=== PATIENT | female | born 1950 | race Caucasian/White ===

== ENCOUNTER → 2017-12-16 | Day surgery (SDC) | payer MEDICARE, OTHER ==
--- NOTE | 2017-12-12 16:04 | Diagnostic Imaging Report ---
PROCEDURE: Frontal and lateral views of the chest. COMPARISON: None. INDICATIONS: pre-op foot FINDINGS: Lines/tubes: None. Lungs: The lungs are well inflated and clear. There is no evidence of pneumonia or pulmonary edema. Mild subsegmental atelectasis or scarring in the left lung base. Pleura: There is no pleural effusion or pneumothorax. Heart and mediastinum: The heart and the mediastinum are normal. Bones: No acute bony abnormality. IMPRESSION: 1. No acute cardiopulmonary disease. Dictated by: Sanya Alvarez M.D. on 12/12/2017 at 16:03 Electronically approved by: Sanya Alvarez M.D. on 12/12/2017 at 16:03
[~2017-12-16] MED LIST: ATORVASTATIN CA20 MG PO; BUPIVACAINE HCL 0.5% 10ML MPF VIAL INJ ONE; CALCIUM 500+D1 EACH PO; CEFAZOLIN SOD 2 GM/D5W 50ML 50 ML IV ONE; DEXAMETHASONE SOD PHOS INJ 4 MG/ML VIAL ONE; EPHEDRINE SULFATE INJ 50 MG/10 ML SYR ONE; FENTANYL CITRATE/PF 100MCG/2 ML INJ ONE; KETOROLAC TROMETHAMINE 30 MG/ML VIAL ONE; LIDOCAINE HCL 2% LOCAL INJ 5 ML SDV VIAL INJ ONE; MIDAZOLAM HCL 2 MG/2 ML VIAL ONE; MULTIVITAMINS1 EAC7 PO; NEOSTIGMINE 1 MG/ML 10ML VIAL ONE; ONDANSETRON HCL INJ 2 MG/ML VIAL ONE; PROPOFOL IV EMULSION 10 MG/ML 20 ML VIAL ONE; SEVOFLURANE INHAL SOLN 250 ML PEN BTL ONE
--- OUTSIDE RECORDS SUMMARY | 2017-12-16 09:12 | XMS REPORT ---
Author Author [facility] Address Unknown Phone Unavailable Care Team Providers Care Furniture [employer] Name Role Phone MELINA SOTO Unavailable Unavailable Problems This patient has no known problems. Allergies, Adverse Reactions, Alerts This patient has no known allergies or adverse reactions. Medications This patient has no known medications. Results Test Description Test Time Test Comments Text Results Atomic Results Result Comments CHEST 2 VIEWS [facility] [address] [place], [place] [address] Patient Name: JOSEE GARZA MR #: [id number] : 1950 Age/Sex: 67/F Req #: [id number] Adm Physician: Ordered by: MELINA SOTO DPM Report #: [id number] Location: OR Room/Bed: Procedure: [id number] DX/CHEST 2 VIEWS Exam Date: 12/12/17 Exam Time: 1530 REPORT STATUS: Signed PROCEDURE: Frontal and lateral views of the chest. COMPARISON: None. INDICATIONS: pre-op foot FINDINGS: Lines/tubes: None. Lungs: The lungs are well inflated and clear. There is no evidence of pneumonia or pulmonary edema. Mild subsegmental atelectasis or scarring in the left lung base. Pleura: There is no pleural effusion or pneumothorax. Heart and mediastinum: The heart and the mediastinum are normal. Bones: No acute bony abnormality. IMPRESSION: 1. No acute cardiopulmonary disease. Dictated by : J Luis Alvarez M.D. on 12/12/2017 at 16:03 Electronically approved by : J Luis Alvarez M.D. on 12/12/2017 at 16:03 Dictated By: J LUIS ALVAREZ MD 1603 Transcribed By: LANA on 12/12/17 1603 COPY TO: MELINA SOTO DPM
--- NOTE | 2018-01-02 18:09 | Operative Report ---
DATE OF PROCEDURE: December 16, 2017 PREOPERATIVE DIAGNOSES 1. Plantar fasciitis of the right foot. 2. Tarsal tunnel syndrome, right foot. 3. Neuralgia and neuritis with associated pain, all on the right foot. POSTOPERATIVE DIAGNOSES 1. Plantar fasciitis of the right foot. 2. Tarsal tunnel syndrome, right foot. 3. Neuralgia and neuritis with associated pain, all on the right foot. TITLE OF OPERATIONS 1. Endoscopic plantar fasciotomy of the right foot. 2. Tarsal tunnel release, right foot. 3. Neurolysis of the tibial nerve on the right foot with application of human tissue allograft wrap overlying the nerve to facilitate healing. PROCEDURE IN DETAIL: The patient was taken to the operating room in a mildly sedated state, and placed upon the operating table in the supine position. Following induction of general anesthetic, the right lower extremity was prepped and draped in the usual aseptic manner utilizing Betadine prep. A mediolateral stab incision was placed, which allowed for insertion of a cannula through the plantar fascia, which was noted to be visible through the slotted portion of the cannula. A hook knife was then used to elongate the medial, central and lateral columns of the plantar fascia of the appropriate length. Any further constricting materials were also elongated at this time. The area was irrigated with copious amounts of sterile saline solution and skin closure was 4-0 nylon. Attention was then directed to the posterior tibial fossa where dissection with an approximate 12 cm J-shaped incision allowed for retrieval of the tarsal tunnel membrane, which was then sectioned to allow for a release of the tarsal tunnel nerve itself. A microscopic neurolysis was then performed of the tibial nerve, which was dissected down to all of its distal branches, all of which were freed, including the distal, medial, lateral, and plantar nerves, and calcaneal nerves. Once were all dissected free, the area was irrigated with copious amounts of sterile saline solution. All nerves were inspected with microscopic evaluation for any further entrapment or damage. The nerve was felt to be viable. A human tissue allograft wrap was used overlying the nerve and in the area of the fossa to facilitate healing and protect the nerve. Deep closure was 3-0 Vicryl and skin closure 4-0 nylon. The areas of surgery were then blocked with 0.5 Marcaine and Decadron [place]. Release of the pneumatic thigh tourniquet showed a normal hyperemic flush to all digits of the right foot. Patient left the operating room with vital signs stable and in apparent satisfactory condition. A TLS drain was applied to facilitate drainage. Job#: [id number] HAYDEN
== END | disposition home or self-care (01) ==
LOC: OR 09:10
PROVIDERS: ATTEND Podiatrist Foot Surgery
DX: M72.2 Plantar fascial fibromatosis (principal); G57.51 Tarsal tunnel syndrome, right lower limb; G58.8 Other specified mononeuropathies; Z88.6 Allergy status to analgesic agent; Z01.810 Encounter for preprocedural cardiovascular examination; Z01.818 Encounter for other preprocedural examination
CPT/HCPCS: 28035; 29893; 64704 ×4; 64727 ×2; 71046; 93005; C1762; J1100; J1885; J2001; J2250; J2405; J2710; Q4131